=== PATIENT | female | born 1965 ===

== ENCOUNTER → 2022-12-21 08:04 | Outpatient (CLI) | payer BC, SELFPAY ==
--- NOTE | ~2022-12-21 | CT_ITS ---
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 TECHNIQUE: Computed tomography (CT) of the temporal bones was performed without intravenous contrast. Automated exposure control and iterative reconstruction technique were employed. The dose-length pro duct was 224.29 mGy-cm. COMPARISON: None FINDINGS: RIGHT TEMPORAL BONE: The internal auditory canal, cochlea, vestibule, semicircular canals, vestibular aqueduct, carotid ca nal, jugular bulb, facial nerve course, ossicles, tympanic membrane, Prussak space, scutum, mastoid a ir cells, and external auditory canal are normal. LEFT TEMPORAL BONE: The left internal auditory canal is larger than the right. The cochlea, vestibule, semicircular canal s, vestibular aqueduct, carotid canal, jugular bulb, facial nerve course, ossicles, tympanic membrane , scutum, Prussak space, external auditory canal, and mastoid air cells are normal. IMPRESSION: 1. The left internal auditory canal is larger than the right. Consider brain MRI without and with con trast to exclude a vestibular schwannoma. Reviewed, dictated and finalized at location A. 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 The left internal auditory canal is larger than the right. Consider brain MR I without and with contrast to exclude a vestibular schwannoma.
== END ==
PROVIDERS: PCP Pediatrics
DX: H90.72 Mixed conductive and sensorineural hearing loss, unilateral, left ear, with unrestricted hearing on the contralateral side (principal)
CPT/HCPCS: 70480

== ENCOUNTER → 2023-01-14 07:41 | Outpatient (CLI) | payer BC, SELFPAY ==
--- NOTE | ~2023-01-14 | MR_ITS ---
EXAMINATION: MR brain IAC wo/w con DATE: 01/14/2023 08:31 INDICATION: Asymmetrical hearing loss. TECHNIQUE: Magnetic resonance imaging (MRI) of the brain, brainstem, and internal auditory canals was performed without and with 13 mL MultiHance intravenous contrast. COMPARISON: Temporal bone CT 12/21/2022 FINDINGS: There is no intracranial hemorrhage, acute infarction, or abnormal intracranial mass lesion . There are scattered areas of nonspecific increased T2-weighted signal intensity in the cerebral whi te matter, which is within normal limits for the patient's age. The ventricles are normal in size. Th e paranasal sinuses are clear. The orbits are normal. The internal auditory canals and inner and midd le ears are normal. The mastoid air cells are normal. IMPRESSION: 1. Normal brain. Reviewed, dictated and finalized at location A. IMPRESSION: 1. Normal brain.
== END ==
PROVIDERS: PCP Pediatrics
DX: H91.8X9 Other specified hearing loss, unspecified ear (principal)
CPT/HCPCS: 70553; A9577

== ENCOUNTER → 2023-10-29 09:05 | Outpatient (CLI) | payer BC, SELFPAY ==
--- NOTE | ~2023-10-29 | MR_ITS ---
MRI of the lumbar spine Clinical History: Back pain Technique: Axial T2-weighted images, and sagittal T1-weighted, T2-weighted, and T2 fat-sat images wer e acquired. Findings: There is no fracture or subluxation of lumbar spine. Vertebral bodies maintain normal heigh t and alignment. No suspicious bone marrow signal abnormality seen. At L1-L2, there is no disc bulge or herniation. There is mild to moderate facet arthropathy. No centr al canal stenosis or neural foraminal narrowing. At L2-L3, there is mild right paracentral disc bulge. There is moderate facet arthropathy. No central canal stenosis or neural foraminal narrowing. At L3-L4, there is minimal disc bulge and mild to moderate facet arthropathy. No central canal stenos is or neural foraminal narrowing. At L4-L5, there is diffuse disc bulge with tiny annular tear. There is moderate facet arthropathy. Th ere is severe thecal sac compression at this level with prominent posterior epidural fat. There is mo derate to severe bilateral neural foraminal narrowing. At L5-S1, there is mild disc bulge and advanced facet arthropathy. Prominent epidural fat at this lev el results in severe compression of the thecal sac. There is mild to moderate left neural foraminal n arrowing. Right neural foramen preserved. No other paravertebral soft tissue abnormality seen. Impression: Multifactorial severe thecal sac compression L4-L5, related to degenerative changes as well as promin ent posterior epidural fat. Advanced bilateral neural foraminal narrowing at this level. Severe thecal sac compression at L5-S1, largely due to prominent epidural fat at this level. Additional minimal degenerative changes, as above. Reviewed, dictated and finalized at location . 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 Advanced bilateral neural for aminal narrowing at this level. Severe thecal sac compression at L5-S1, largely due to prominent epidural fat a t this level. Additional minimal degenerative changes, as above.
== END ==
PROVIDERS: PCP Pediatrics; Visit Provider Nurse Practitioner Family
DX: M54.31 Sciatica, right side (principal); G95.29 Other cord compression
CPT/HCPCS: 72148